=== PATIENT | male | born 1975 | race Caucasian/White ===

== ENCOUNTER → 2019-07-26 11:47 | Outpatient (BNVA) | payer MEDICAID, SELFPAY | PROVIDERS: Family Provider Family Medicine; PCP Family Medicine; Visit Provider Family Medicine | DX: M75.81 Other shoulder lesions, right shoulder (principal); I10 Essential (primary) hypertension; Z13.1 Encounter for screening for diabetes mellitus; L57.0 Actinic keratosis | CPT/HCPCS: 73030; 80053; 80061; 83036; 85025 ==

== ENCOUNTER → 2019-08-23 14:06 | Outpatient (BNVA) | payer MEDICAID, SELFPAY | PROVIDERS: Family Provider Family Medicine; PCP Family Medicine; Visit Provider Specialist | DX: G43.711 Chronic migraine without aura, intractable, with status migrainosus (principal); Z87.891 Personal history of nicotine dependence | CPT/HCPCS: 64615; 99212; J0585 ==

== ENCOUNTER → 2019-11-15 14:09 | Outpatient (BNVA) | payer MEDICAID, SELFPAY | PROVIDERS: Family Provider Family Medicine; PCP Family Medicine; Visit Provider Specialist | DX: G43.711 Chronic migraine without aura, intractable, with status migrainosus (principal); F33.2 Major depressive disorder, recurrent severe without psychotic features; Z87.891 Personal history of nicotine dependence | CPT/HCPCS: 64615; 99213; J0585 ==

== ENCOUNTER → 2020-08-28 14:02 | Outpatient (BNVA) | payer MEDICARE, MEDICAID, SELFPAY | PROVIDERS: Family Provider Family Medicine; PCP Family Medicine; Visit Provider Specialist | DX: G43.711 Chronic migraine without aura, intractable, with status migrainosus (principal); G40.309 Generalized idiopathic epilepsy and epileptic syndromes, not intractable, without status epilepticus; F33.2 Major depressive disorder, recurrent severe without psychotic features; Z87.891 Personal history of nicotine dependence | CPT/HCPCS: 64615; 99212; J0585 ==

== ENCOUNTER → 2020-10-16 14:15 | Outpatient (BNVA) | payer MEDICARE, MEDICAID, SELFPAY | PROVIDERS: Family Provider Family Medicine; PCP Family Medicine; Visit Provider Registered Nurse | DX: Z79.899 Other long term (current) drug therapy (principal) | CPT/HCPCS: 36415; 80061; 83036 ==

== ENCOUNTER → 2020-10-21 15:21 | Outpatient (BNVA) | payer MEDICARE, MEDICAID, SELFPAY | PROVIDERS: Family Provider Family Medicine; PCP Family Medicine; Visit Provider Family Medicine | DX: J44.9 Chronic obstructive pulmonary disease, unspecified (principal); F33.2 Major depressive disorder, recurrent severe without psychotic features; E78.2 Mixed hyperlipidemia | CPT/HCPCS: 80053; 80061; 85025 ==

== ENCOUNTER → 2021-05-05 13:26 | Outpatient (BNVA) | payer MEDICARE, MEDICAID, SELFPAY | PROVIDERS: Family Provider Family Medicine; PCP Family Medicine; Visit Provider Family Medicine | DX: I10 Essential (primary) hypertension (principal); Z51.81 Encounter for therapeutic drug level monitoring | CPT/HCPCS: 80053; 85025 ==

== ENCOUNTER → 2021-05-25 14:25 | Outpatient (BNVA) | payer MEDICARE, MEDICAID, SELFPAY | PROVIDERS: Family Provider Family Medicine; PCP Family Medicine; Visit Provider Family Medicine | DX: I10 Essential (primary) hypertension (principal) | CPT/HCPCS: 80053 ==